=== PATIENT | male | born 1960 | race Caucasian/White ===

== ENCOUNTER → 2022-07-20 | Outpatient (CLI) | payer BC ==
--- NOTE | 2022-07-20 10:30 | XR ---
EXAMINATION TYPE: XR Hip Complete LT DATE OF EXAM: 07/20/2022 COMPARISON: NONE HISTORY: Pain TECHNIQUE: 2 views submitted FINDINGS: There is no evidence of erosive change or acute fracture. Calcification along the lateral acetabulum seen and there is moderate concentric narrowing of the hip joint. Postsurgical changes lower lumbosacral spine. IMPRESSION: 1. Arthropathy correlate for femoral acetabular impingement. 2. Calcification along the lateral margin of the acetabulum can be associated with acetabular labral tear correlate clinically.
--- NOTE | 2022-07-20 10:31 | XR ---
EXAM TYPE: LUMBAR SPINE X RAY SERIES COMPARISON: NONE HISTORY: Pain TECHNIQUE: 4 views are submitted. FINDINGS: Stents of postsurgical changes extending from L2 through S1 with severe multilevel degenerative disc disease and anterior hypertrophic spurring. Suspect multilevel foraminal encroachment with posterior spondylosis. Mild diffuse osteopenia. IMPRESSION: 1. Postsurgical change appears in near-anatomic alignment. 2. Multilevel hypertrophic and degenerative disc disease with multilevel foraminal encroachment suspe cted.
== END | disposition home or self-care (01) ==
LOC: RADXRYALE 09:52
PROVIDERS: ATTEND Physician Assistant
DX: M43.26 Fusion of spine, lumbar region (principal); M51.36 Other intervertebral disc degeneration, lumbar region; M16.12 Unilateral primary osteoarthritis, left hip
CPT/HCPCS: 72110; 73502

== ENCOUNTER → 2023-05-31 | Outpatient (CLI) | payer BC ==
--- NOTE | 2023-05-31 11:50 | XR ---
EXAMINATION TYPE: XR hand complete RT DATE OF EXAM: 05/31/2023 COMPARISON: NONE HISTORY: Pain TECHNIQUE: Three views are submitted. FINDINGS: The osseous structures are intact. Mild hypertrophic arthropathy of the first and second MCP. On the lateral view there is a questionable deformity involving the volar surface middle phalanx third digit . IMPRESSION: 1. Questionable deformity involving the base volar surface middle phalanx third digit. Correlate with point tenderness to exclude hairline fracture.
--- NOTE | 2023-05-31 11:51 | XR ---
EXAMINATION TYPE: XR wrist complete RT DATE OF EXAM: 05/31/2023 COMPARISON: NONE HISTORY: Pain TECHNIQUE: Three views submitted. FINDINGS: There is sclerosis involving the scaphoid. Mild arthropathy first and second MCP joints. No definitiv e acute fracture or dislocation. Negative ulnar variance. IMPRESSION: 1. 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 Correlate with point tenderness. If point tender correlate with CT scan.
== END | disposition home or self-care (01) ==
LOC: RADXRYALE 09:38
PROVIDERS: ATTEND Physician Assistant
DX: M25.831 Other specified joint disorders, right wrist (principal); M79.641 Pain in right hand

== ENCOUNTER → 2023-08-16 | Outpatient (CLI) | payer BC ==
--- NOTE | 2023-08-16 13:44 | XR ---
EXAMINATION TYPE: XR wrist complete RT DATE OF EXAM: 08/16/2023 COMPARISON: 05/31/2023 HISTORY: Pain TECHNIQUE: Four views submitted. FINDINGS: The osseous structures are intact. The joint spaces are preserved and there is no acute fracture or dislocation. Arthropathy of the first through third MCP joints. Mild radiocarpal joint. Redemonstrat ed is sclerosis scaphoid likely chronic. There is a negative ulnar variance. Ulna appears intact IMPRESSION: 1. No definite acute fracture or dislocation if symptoms persist, follow-up study in 7 to 10 days wo uld be suggested. 2. Arthropathy of the radiocarpal and first MCP joint with no erosive change. 3. Stable negative ulnar variance. If there is concern for ligamentous injury or persistent pain cons ider correlation with MRI.
== END | disposition home or self-care (01) ==
LOC: RADXRYALE 10:04
PROVIDERS: ATTEND Physician Assistant
DX: M18.11 Unilateral primary osteoarthritis of first carpometacarpal joint, right hand (principal)

== ENCOUNTER → 2024-06-05 | Outpatient (CLI) | payer MEDICARE, BC ==
--- NOTE | 2024-06-05 15:19 | XR ---
EXAMINATION TYPE: XR wrist complete RT DATE OF EXAM: 06/05/2024 COMPARISON: NONE CLINICAL INDICATION: Male, 63 years old with history of [id number] RT WRIST PAIN; TECHNIQUE: Four views submitted. FINDINGS: The osseous structures are intact. Mild first carpal metacarpal joint arthropathy and radiocarpal levi nt arthropathy. There is a negative ulnar variance. Mild second MCP joint arthropathy. There is No ac sandor fracture or dislocation. IMPRESSION: 1. No definite acute fracture or dislocation. If symptoms become persistent consider MRI to assess f or marrow edema given the negative x-ray. [facility], , 06/05/2024 3:17 PM
== END | disposition home or self-care (01) ==
LOC: RADXRYALE 14:44
PROVIDERS: ATTEND Physician Assistant
DX: M12.831 Other specific arthropathies, not elsewhere classified, right wrist (principal)

== ENCOUNTER → 2024-06-16 | Outpatient (CLI) | payer MEDICARE, BC ==
--- NOTE | 2024-06-16 11:38 | XR ---
EXAMINATION TYPE: XR lumbosacral spine min 4V DATE OF EXAM: 06/16/2024 10:57 AM COMPARISON: 07/20/2022 CLINICAL INDICATION: Male, 63 years old with history of [id number] LBP,FALL; [facility] TECHNIQUE: XR lumbosacral spine min 4V - Frontal, lateral , bilateral oblique and coned in L5-S1 late ral views of the spine. FINDINGS: No evidence of any acute osseous pathology. No evidence of loss of vertebral body height i s seen. There is normal alignment of the lumbar vertebral bodies. Post surgical changes to the spine with fixation hardware at L2-S1. Hardware appears intact. Discectomy at multiple levels including L2/ L3 to L5-S1 - S1. Moderate multilevel degeneration changes with joint space narrowing osteophyte form ation disc and facet joint arthropathy. IMPRESSION: 1. No acute fracture. 2. Surgical changes with hardware intact. 3. Moderate to severe degeneration of the spine. [facility], , 06/16/2024 11:36 AM
== END | disposition home or self-care (01) ==
LOC: RADXRYALE 10:42
PROVIDERS: ATTEND Physician Assistant Medical
DX: M47.816 Spondylosis without myelopathy or radiculopathy, lumbar region (principal); W01.0XXA Fall on same level from slipping, tripping and stumbling without subsequent striking against object, initial encounter
CPT/HCPCS: 72110